=== PATIENT | male | born 1950 | race Caucasian/White ===

== ENCOUNTER 2017-08-10 21:36 | Inpatient (IN) | payer OTHER ==
[~2017-08-10] VITALS: Ht 182.9 cm; Wt 84.1 kg
[~2017-08-10 21:36] MED LIST: BLOOD PRESSURE PILL; Diatx W/Zinc,Folbee PO; Epogen,Procrit IV; Flomax PO; Folvite PO; HYDROCODON-ACE1 EAC7 PO; LOPRESSOR25 MG PO; Proscar PO; ZEMPLAR5 MCG/ML IV; [UNRECOGNIZED DRUG - REMARK]
[2017-08-10 22:01] LABS: HEMOGLOBIN 14.2 G/DL (12.5-16.6); MCH 29.4 PG (29.0-34.0); PLATELET COUNT 192 K/uL (156-360); RBC DIS.WIDTH-CV 13.8 % (11.8-14.6); RED BLOOD COUNT 4.83 M/uL (4.00-5.50); WHITE BLOOD COUNT 6.1 K/uL (4.1-10.2)
[2017-08-10 22:10] LABS: CHLORIDE 95 mEq/L (99-109); POTASSIUM 4.1 mEq/L (3.7-5.4); SODIUM 138 mEq/L (136-147)
[2017-08-10 22:12] LABS: GLUCOSE 127 mg/dL (70-99)
[2017-08-10 22:16] LABS: CREATININE 3.2 mg/dL (0.6-1.3); GFR ESTIMATE (CALCULATED) 21 mL/min/ (58.99-99999)
[2017-08-10 22:17] LABS: UREA NITROGEN (BUN) 18 mg/dL (9-23)
[2017-08-10 22:45] LABS: ALBUMIN 3.8 g/dL (3.2-4.8)
[2017-08-10 22:48] LABS: TOTAL PROTEIN 7.2 g/dL (6.4-8.3)
[2017-08-10 22:49] LABS: TOTAL BILIRUBIN 1.9 mg/dL (0.0-1.0)
[2017-08-10 22:50] LABS: ALKALINE PHOSPHATASE 156 IU/L (3-129)
[2017-08-10 22:53] LABS: AST (GOT) 10 IU/L (2-34); DIRECT BILIRUBIN 0.6 mg/dL (0.0-0.3)
[2017-08-10 22:54] LABS: ALT (GPT) 10 IU/L (3-49); LIPASE 28 U/L (1.0-51.0)
[2017-08-10 22:57] LABS: TROP-I INTERPRETATION NEGATIVE; TROPONIN-I 0.04 ng/mL (0.0-0.30)
[2017-08-10] MEDS ORDERED: CARDURA4 MG PO (23:17)
[2017-08-11 03:43] LABS: APPEARANCE CLEAR ((CLEAR)); BILIRUBIN NEGATIVE; BLOOD NEGATIVE; COLOR YELLOW ((YELLOW)); GLUCOSE (STRIP) 50; KETONES NEGATIVE; LEUKOCYTES NEGATIVE; NITRITE NEGATIVE; PROTEIN (STRIP) >=500; UROBILINOGEN 0.2 MG/DL (0.2-1.0)
[2017-08-11 03:49] LABS: BACTERIA NONE SEEN /HPF; EPITHELIAL CELLS RARE /HPF; MUCUS TRACE /LPF; UCUL ADDED? NO; WHITE BLOOD CELLS 0-5 /HPF (0-5)
[2017-08-11 04:01] VITALS: BP 182/94
[2017-08-11 07:32] VITALS: BP 156/97
[2017-08-11 10:36] LABS: INTER. NORMALIZED RATIO 1.3
[2017-08-11 10:39] LABS: PTT 31.4 SEC (25-37)
[2017-08-11 11:15] LABS: TYPE OF FLUID THORACENTESIS
[2017-08-11 11:31] LABS: APPEARANCE SL. HAZY-YELLOW; BODY FLUID RBC'S < 1000 /MM^3 (0-100); BODY FLUID WBC'S 138 /MM^3 (0-500)
[2017-08-11 12:05] LABS: BODY FLUID EOSINOPHILS 14 % (0-25); MONONUCLEAR WBC'S 72 %; POLYNUCLEAR WBC'S 14 % (0-25)
[2017-08-11 12:22] LABS: BODY FLUID LDH 70 IU/L
[2017-08-11 15:28] LABS: BODY FLUID GLUCOSE 97 MG/DL
[2017-08-11 15:51] VITALS: BP 164/95
[2017-08-11 20:22] VITALS: BP 168/98
[2017-08-11 23:58] VITALS: BP 184/104
[2017-08-12 00:09] LABS: TROP-I INTERPRETATION NEGATIVE; TROPONIN-I 0.05 ng/mL (0.0-0.30)
[2017-08-12 01:14] VITALS: BP 179/101
[2017-08-12 04:11] VITALS: BP 162/94
[2017-08-12 08:01] LABS: BASOPHIL (%) 0.8 % (0-1); BASOPHIL COUNT 0.1 K/uL (0-0.1); EOSINOPHIL (%) 3.9 % (0-5); EOSINOPHIL COUNT 0.3 K/uL (0-0.3); HEMATOCRIT 36.8 % (38.0-50.0); IMMATURE GRANULOCYTE (%) 0.3 % (0.0-0.7); LYMPHOCYTE (%) 17.5 % (15-42); LYMPHOCYTE COUNT 1.1 K/uL (1.0-2.8); MCH 28.3 PG (29.0-34.0); MCHC 31.8 G/DL (30.0-36.0); MCV 89.1 FL (86-99); MONOCYTE (%) 8.4 % (3-12); MONOCYTE COUNT 0.5 K/uL (0-0.8); NEUTROPHIL (%) 69.1 % (45-76); NEUTROPHIL COUNT 4.5 K/uL (1.8-6.4); PLATELET COUNT 178 K/uL (156-360); RBC DIS.WIDTH-CV 13.9 % (11.8-14.6); RBC DIS.WIDTH-SD 45.3 % (39-53); RED BLOOD COUNT 4.13 M/uL (4.00-5.50); WHITE BLOOD COUNT 6.5 K/uL (4.1-10.2)
[2017-08-12 08:02] LABS: HEMOGLOBIN 11.7 G/DL (12.5-16.6)
[2017-08-12 08:16] LABS: TROP-I INTERPRETATION NEGATIVE; TROPONIN-I 0.04 ng/mL (0.0-0.30)
[2017-08-12 08:26] LABS: ALBUMIN 3.3 G/DL (3.2-4.8); CHLORIDE 98 MEQ/L (99-109); GFR ESTIMATE (CALCULATED) 14 mL/min/ (58.99-99999); GLUCOSE 150 mg/dL (70-99); PHOSPHORUS 3.3 mg/dL (2.5-4.9); POTASSIUM 3.8 MEQ/L (3.7-5.4); SODIUM 137 MEQ/L (136-147)
[2017-08-12 08:36] LABS: CREATININE 4.6 MG/DL (0.6-1.3); UREA NITROGEN (BUN) 29 mg/dL (9-23)
[2017-08-12 11:00] VITALS: BP 152/69
[2017-08-12 16:06] VITALS: BP 138/75
[2017-08-12 20:07] VITALS: BP 165/90
[2017-08-12 23:28] VITALS: BP 139/83
[2017-08-13 03:13] VITALS: BP 136/80
[2017-08-13 07:27] VITALS: BP 153/79
[2017-08-13 12:18] VITALS: BP 150/89
[2017-08-13 16:48] VITALS: BP 152/88
[2017-08-13 21:21] VITALS: BP 136/79
[2017-08-14] VITALS: BP 130/74
[2017-08-14 07:19] VITALS: BP 139/72
[2017-08-14 15:13] VITALS: BP 101/54
[2017-08-14 21:03] VITALS: BP 140/70
[2017-08-14 23:41] VITALS: BP 124/70
[2017-08-15 06:46] LABS: HEMOGLOBIN 12.1 G/DL (12.5-16.6); MCH 28.5 PG (29.0-34.0); MCHC 32.7 G/DL (30.0-36.0); MCV 87.1 FL (86-99); PLATELET COUNT 195 K/uL (156-360); RBC DIS.WIDTH-CV 13.5 % (11.8-14.6); RBC DIS.WIDTH-SD 43.3 % (39-53); RED BLOOD COUNT 4.25 M/uL (4.00-5.50); WHITE BLOOD COUNT 6.4 K/uL (4.1-10.2)
[2017-08-15 07:13] LABS: CHLORIDE 99 MEQ/L (99-109); GFR ESTIMATE (CALCULATED) 11 mL/min/ (58.99-99999); POTASSIUM 3.8 MEQ/L (3.7-5.4); SODIUM 137 MEQ/L (136-147); UREA NITROGEN (BUN) 43 mg/dL (9-23)
[2017-08-15 07:15] LABS: CREATININE 5.6 MG/DL (0.6-1.3); GLUCOSE 83 mg/dL (70-99)
[2017-08-15 07:48] VITALS: BP 108/60
[2017-08-15 16:05] VITALS: BP 126/71
[2017-08-15 21:45] VITALS: BP 106/56
[2017-08-15 23:27] VITALS: BP 132/74
[2017-08-16 07:18] LABS: BASOPHIL (%) 0.7 % (0-1); BASOPHIL COUNT 0.1 K/uL (0-0.1); EOSINOPHIL (%) 8.7 % (0-5); EOSINOPHIL COUNT 0.6 K/uL (0-0.3); HEMATOCRIT 39.5 % (38.0-50.0); HEMOGLOBIN 13.2 G/DL (12.5-16.6); IMMATURE GRANULOCYTE (%) 0.1 % (0.0-0.7); LYMPHOCYTE (%) 22.2 % (15-42); LYMPHOCYTE COUNT 1.5 K/uL (1.0-2.8); MCH 29.7 PG (29.0-34.0); MCHC 33.4 G/DL (30.0-36.0); MONOCYTE (%) 9.9 % (3-12); MONOCYTE COUNT 0.7 K/uL (0-0.8); NEUTROPHIL (%) 58.4 % (45-76); NEUTROPHIL COUNT 3.9 K/uL (1.8-6.4); PLATELET COUNT 195 K/uL (156-360); RBC DIS.WIDTH-CV 13.5 % (11.8-14.6); RBC DIS.WIDTH-SD 44.1 % (39-53); RED BLOOD COUNT 4.44 M/uL (4.00-5.50); WHITE BLOOD COUNT 6.8 K/uL (4.1-10.2)
[2017-08-16 07:41] LABS: CHLORIDE 96 MEQ/L (99-109); CREATININE 4.3 MG/DL (0.6-1.3); GFR ESTIMATE (CALCULATED) 15 mL/min/ (58.99-99999); GLUCOSE 83 mg/dL (70-99); POTASSIUM 3.5 MEQ/L (3.7-5.4); SODIUM 139 MEQ/L (136-147); UREA NITROGEN (BUN) 30 mg/dL (9-23)
[2017-08-16 08:04] VITALS: BP 134/69
[2017-08-16 15:52] VITALS: BP 116/63
[2017-08-17 00:03] VITALS: BP 117/67
[2017-08-17 07:14] VITALS: BP 117/62
[2017-08-17 09:58] LABS: BASOPHIL (%) 0.7 % (0-1); BASOPHIL COUNT 0.1 K/uL (0-0.1); EOSINOPHIL (%) 8.5 % (0-5); EOSINOPHIL COUNT 0.6 K/uL (0-0.3); HEMATOCRIT 38.1 % (38.0-50.0); HEMOGLOBIN 12.6 G/DL (12.5-16.6); IMMATURE GRANULOCYTE (%) 0.3 % (0.0-0.7); LYMPHOCYTE (%) 21.6 % (15-42); LYMPHOCYTE COUNT 1.5 K/uL (1.0-2.8); MCH 29.2 PG (29.0-34.0); MCHC 33.1 G/DL (30.0-36.0); MCV 88.4 FL (86-99); MONOCYTE (%) 9.9 % (3-12); MONOCYTE COUNT 0.7 K/uL (0-0.8); PLATELET COUNT 191 K/uL (156-360); RBC DIS.WIDTH-CV 13.4 % (11.8-14.6); RBC DIS.WIDTH-SD 43.8 % (39-53); RED BLOOD COUNT 4.31 M/uL (4.00-5.50); WHITE BLOOD COUNT 6.7 K/uL (4.1-10.2)
[2017-08-17 10:14] LABS: ALBUMIN 3.1 G/DL (3.2-4.8); CHLORIDE 97 MEQ/L (99-109); CREATININE 4.7 MG/DL (0.6-1.3); GFR ESTIMATE (CALCULATED) 13 mL/min/ (58.99-99999); PHOSPHORUS 3.1 mg/dL (2.5-4.9); POTASSIUM 3.7 MEQ/L (3.7-5.4); SODIUM 135 MEQ/L (136-147)
[2017-08-17 10:29] LABS: GLUCOSE 110 mg/dL (70-99); UREA NITROGEN (BUN) 46 mg/dL (9-23)
[2017-08-17 15:12] VITALS: BP 112/61
[2017-08-17 21:00] VITALS: BP 112/78
[2017-08-18 00:02] VITALS: BP 110/64
[2017-08-18 07:42] VITALS: BP 121/62
[2017-08-18] MEDS ORDERED: APRESOLINE25 MG PO (11:39)
[2017-08-18] MEDS ORDERED: NEPHRO-VITE,1 TABLET PO (11:40)
[2017-08-18] MEDS ORDERED: LOPRESSOR50 MG PO (11:40)
[2017-08-18] MEDS ORDERED: LISINOPRIL10 MG PO (11:40)
== END 2017-08-18 14:10 | disposition home health service (06) | DRG 186 ==
LOC: EME 21:36 → 5SOUTH 08-11 02:29 → EDOF 08-11 02:29 → ENRESERV 08-11 02:31 → 5SOUTH 08-11 03:55 → ENPENDDIS 08-18 11:49 → 5SOUTH 08-18 14:10
PROVIDERS: Emergency Medicine; Hospitalist; Internal Medicine; Internal Medicine Nephrology; Physician Assistant; Radiology Diagnostic Radiology
PROC: 0W9930Z Drainage of Right Pleural Cavity with Drainage Device, Percutaneous Approach (ICD-10-PCS; principal; 2017-08-11)
DX: J94.8 Other specified pleural conditions (principal); J93.83 Other pneumothorax; I71.2 Thoracic aortic aneurysm, without rupture; J98.11 Atelectasis; N18.6 End stage renal disease; I13.2 Hypertensive heart and chronic kidney disease with heart failure and with stage 5 chronic kidney disease, or end stage renal disease; I34.0 Nonrheumatic mitral (valve) insufficiency; I42.9 Cardiomyopathy, unspecified; I27.20 Pulmonary hypertension, unspecified; I50.9 Heart failure, unspecified; R09.02 Hypoxemia; I47.1 Supraventricular tachycardia; N40.0 Benign prostatic hyperplasia without lower urinary tract symptoms; M10.9 Gout, unspecified; Z79.899 Other long term (current) drug therapy; Z87.442 Personal history of urinary calculi; Z72.0 Tobacco use; Z86.73 Personal history of transient ischemic attack (TIA), and cerebral infarction without residual deficits; Z99.2 Dependence on renal dialysis; Z82.49 Family history of ischemic heart disease and other diseases of the circulatory system
CPT/HCPCS: 49405; 71010; 71020; 71045; 71250; 76942; 80048; 80069; 80076; 81003; 82945; 83605; 83615; 83615 91; 83690; 83880; 83986 90; 84157; 84484; 85025; 85027; 85610; 85730; 87040; 87070; 87075; 87205; 87449; 87493; 88108; 89051; 93005; 93306; 94799; 99281; 99285; C1729; C1769; G0103; J0360; J1644; J1940; J1956; J3010

== ENCOUNTER 2017-09-08 16:14 | Inpatient (IN) | payer OTHER ==
[~2017-09-08] VITALS: Ht 182.9 cm; Wt 80.4 kg
[~2017-09-08 16:14] MED LIST changes: +APRESOLINE25 MG PO; +CARDURA4 MG PO; +LISINOPRIL10 MG PO; +LOPRESSOR50 MG PO; +NEPHRO-VITE,1 TABLET PO
[2017-09-08 16:43] LABS: HEMATOCRIT 39.5 % (38.0-50.0); HEMOGLOBIN 12.8 G/DL (12.5-16.6); MCH 29.3 PG (29.0-34.0); MCHC 32.4 G/DL (30.0-36.0); MCV 90.4 FL (86-99); PLATELET COUNT 204 K/uL (156-360); RBC DIS.WIDTH-CV 13.6 % (11.8-14.6); RBC DIS.WIDTH-SD 45.2 % (39-53); RED BLOOD COUNT 4.37 M/uL (4.00-5.50); WHITE BLOOD COUNT 9.1 K/uL (4.1-10.2)
[2017-09-08 16:53] LABS: CHLORIDE 101 mEq/L (99-109); SODIUM 135 mEq/L (136-147)
[2017-09-08 16:55] LABS: GLUCOSE 87 mg/dL (70-99)
[2017-09-08 16:59] LABS: CREATININE 5.4 mg/dL (0.6-1.3); GFR ESTIMATE (CALCULATED) 11 mL/min/ (58.99-99999); UREA NITROGEN (BUN) 44 mg/dL (9-23)
[2017-09-08 17:04] LABS: TROP-I INTERPRETATION NEGATIVE; TROPONIN-I 0.01 ng/mL (0.0-0.30)
[2017-09-08 17:16] LABS: POTASSIUM 7.3 mEq/L (3.7-5.4)
[2017-09-08] MEDS ORDERED: BYSTOLIC5 MG PO (17:53)
[2017-09-08] MEDS ORDERED: AZOR 5/20 MG1 TABLET PO (17:53)
[2017-09-08 22:00] VITALS: BP 161/75
[2017-09-08 22:45] VITALS: BP 169/86
[2017-09-08 23:18] LABS: TROP-I INTERPRETATION NEGATIVE; TROPONIN-I 0.03 ng/mL (0.0-0.30)
[2017-09-09 03:52] VITALS: BP 137/64
[2017-09-09 08:07] LABS: HEMATOCRIT 36.5 % (38.0-50.0); HEMOGLOBIN 11.9 G/DL (12.5-16.6); MCH 29.3 PG (29.0-34.0); MCHC 32.6 G/DL (30.0-36.0); MCV 89.9 FL (86-99); PLATELET COUNT 175 K/uL (156-360); RBC DIS.WIDTH-CV 13.7 % (11.8-14.6); RBC DIS.WIDTH-SD 44.8 % (39-53); RED BLOOD COUNT 4.06 M/uL (4.00-5.50); WHITE BLOOD COUNT 7.7 K/uL (4.1-10.2)
[2017-09-09 08:25] LABS: ALBUMIN 3.4 G/DL (3.2-4.8); CHLORIDE 101 MEQ/L (99-109); GFR ESTIMATE (CALCULATED) 16 mL/min/ (58.99-99999); GLUCOSE 156 mg/dL (70-99); PHOSPHORUS 4.1 mg/dL (2.5-4.9); POTASSIUM 4.1 MEQ/L (3.7-5.4); SODIUM 136 MEQ/L (136-147); UREA NITROGEN (BUN) 33 mg/dL (9-23)
[2017-09-09 08:27] LABS: TROP-I INTERPRETATION NEGATIVE; TROPONIN-I 0.08 ng/mL (0.0-0.30)
[2017-09-09 12:30] VITALS: BP 139/81
[2017-09-09] MEDS ORDERED: AMLODIPINE BESY10 MG PO (14:41)
[2017-09-10 12:13] LABS: HEPATITIS B SURFACE ANTIGEN Nonreactive
[2017-09-10 12:15] LABS: HEPATITIS B SURFACE ANTIBODY REACTIVE
== END 2017-09-09 15:21 | disposition home or self-care (01) | DRG 640 ==
LOC: EME 16:14 → 4EAST 20:32 → EDOF 20:32 → ENRESERV 20:34 → 4EAST 21:47 → ENPENDDIS 09-09 → CANRESERV 09-09 14:10 → ENRESERV 09-09 14:10 → 4EAST 09-09 15:21
PROVIDERS: Emergency Medicine; Hospitalist; Internal Medicine Nephrology
PROC: 5A1D70Z Performance of Urinary Filtration, Intermittent, Less than 6 Hours Per Day (ICD-10-PCS; principal; 2017-09-08)
PROC: 5A1D70Z Performance of Urinary Filtration, Intermittent, Less than 6 Hours Per Day (ICD-10-PCS; 2017-09-09)
DX: E87.5 Hyperkalemia (principal); N17.9 Acute kidney failure, unspecified; I13.11 Hypertensive heart and chronic kidney disease without heart failure, with stage 5 chronic kidney disease, or end stage renal disease; I50.22 Chronic systolic (congestive) heart failure; N18.6 End stage renal disease; I42.0 Dilated cardiomyopathy; R07.89 Other chest pain; I25.10 Atherosclerotic heart disease of native coronary artery without angina pectoris; I27.20 Pulmonary hypertension, unspecified; F17.220 Nicotine dependence, chewing tobacco, uncomplicated; I25.2 Old myocardial infarction; Z86.73 Personal history of transient ischemic attack (TIA), and cerebral infarction without residual deficits; Z99.2 Dependence on renal dialysis; Z87.442 Personal history of urinary calculi
CPT/HCPCS: 71046; 80048; 80048 91; 80069; 83880; 84484; 85027; 86706; 87081; 87340; 87641; 93005; 94644; 99281; 99285; J1644